=== PATIENT | male | born 2000 | race Caucasian/White ===

== ENCOUNTER 2022-05-13 13:41 | Emergency (ER) | payer SELFPAY ==
[~2022-05-13] VITALS: Ht 185.4 cm; Wt 65.9 kg
[2022-05-13 13:53] VITALS: BP 125/66
[2022-05-13] MEDS ORDERED: ACETAMINOPHEN TAB 650MG DOSE (2X325MG) PO ONE (14:25)
== END 2022-05-13 16:26 | disposition left against medical advice (07) ==
LOC: EDBD 13:41 → M ED 13:41
DX: Z53.21 Procedure and treatment not carried out due to patient leaving prior to being seen by health care provider (principal)